=== PATIENT | male | born 1960 | race African-American/Black ===

== ENCOUNTER 2016-09-21 16:08 | Inpatient (IN) | payer OTHER ==
[~2016-09-21] VITALS: Ht 182.9 cm; Wt 213.2 kg
[~2016-09-21 16:08] MED LIST: ALBUTEROL2.5 MG/3 M INH; ASPIRIN81 MG ORAL; CRANBERRY450 M4 PO; DOCUSATE SODIU100 MG ORAL; HUMALOG100 UNIT/4 SUBQ; LACTULOSE20 GM/301 ORAL; LANTUS SOL100 UNIT/1 SUBQ; MAGNESIUM OXID400 M1 ORAL; METFORMIN HCL500 M1 ORAL; NORCO 10-325 T1 EACH ORAL; NYSTATIN15 GM TOPIC; SENNA8.6 M2 PO; SPIRONOLACTONE1 EACH ORAL; TYLENOL325 MG ORAL; ZOCOR20 MG ORAL
--- NOTE | 2016-09-21 16:13 | Emergency Room Report ---
History of Present Illness General Chief Complaint: General Complaint Source: Patient, Medical Record, EMS Present Illness HPI The patient comes in with a history of left lower lobe pneumonia. He resides in a [facility] facility. He is been coughing and wheezing. He has morbid obesity and positive peripheral edema. Denies any chest pain but has anxiety. His history of scrotal edema and as a urinary catheter in. Apparently there was difficulty inserting the catheter the last time he was here. He is on oxygen chronically at the facility and also has a nebulizer. He has been wheezing. He states he doesn't want to stay in the hospital and wants to be treated as an outpatient. Occasional headaches. No change in vision. No NVD. Appetite normal. Allergies: Coded Allergies: No Known Allergies (Unverified , 07/01/16) Patient History Past Medical History: see triage record Social History: Denies: smoking Social History Narrative SNF Reviewed Nursing Documentation: PMH: Agreed, PSxH: Agreed Nursing Documentation-PMH Past Medical History: No History, Except For Hx Hypertension: Yes - Hypercholesterolemia, Erythema Intertrigo Hx COPD: Yes Hx Diabetes: Yes - Type 2, care home use of insulin Review of Systems All Other Systems: negative except mentioned in HPI Physical Exam Vital Signs Date Time Temp Pulse Resp B/P Pulse Ox O2 Delivery O2 Flow Rate FiO2 09/21/16 16:05 98.1 84 16 137/70 97 Nasal Cannula 4.0 Sp02 EP Interpretation: reviewed, normal General Appearance: no apparent distress, GCS 15, obese - morbid Head: normocephalic, atraumatic Eyes: bilateral eye PERRL, bilateral eye normal inspection ENT: moist mucus membranes Neck: supple Respiratory: decreased breath sounds, crackles, rales, wheezing, expiration Cardiovascular #1: regular rate, rhythm, edema Cardiovascular #2: 2+ radial (R) Gastrointestinal: normal bowel sounds, non tender, non-distended, overweight - massive Genitourinary: other - edema - scrota size of basketball, unable to see penis Musculoskeletal: back normal, inflammation, swelling Neurologic: alert, oriented x3, motor strength/tone normal, sensory intact, speech normal Psychiatric: depressed affect Skin: other - min erythema LE Medical Decision Making Diagnostic Impression: Primary Impression: Pneumonia Qualified Codes: J18.9 - Pneumonia, unspecified organism Additional Impressions: Morbid obesity Qualified Codes: E66.01 - Morbid (severe) obesity due to excess calories Scrotal edema Pyuria COPD (chronic obstructive pulmonary disease) Qualified Codes: J44.0 - Chronic obstructive pulmonary disease with acute lower respiratory infection ER Course Patient presents with cough which is productive dyspnea wheezing and apparently an x-ray that reveals left-sided pneumonia. Differential includes pneumonia, exacerbation of COPD, acute myocardial infarction amongst others. The patient needs to have emergent evaluation with labs, blood cultures, chest x-ray. In addition to that the patient be treated with beta agonists. Labs remarkable for elevated WBC, pyuria. CXR with infiltrates and L effusion. The patient somewhat improved after treatment however still shows evidence of pneumonia with leukocytosis and infiltrates with effusion on the left-hand side. The patient needs IV antibiotics and further hospitalization. Initially the patient was refusing to be hospitalized but then agreed. Antibiotics started. Transiently seen by [facility] urologist as scrotal edema is massive. Discussed with Dr. Graves who accepts patient in transfer. Unable to transfer due to no bariatric transport. Admit here Dr. Reis. Laboratory Tests Test 09/21/16 17:30 09/21/16 17:58 White Blood Count 13.3 K/UL (4.8-10.8) H Red Blood Count 4.41 M/UL (4.70-6.10) L Hemoglobin 12.7 G/DL (14.2-18.0) L Hematocrit 40.8 % (42.0-52.0) L Mean Corpuscular Volume 93 FL (80-99) Mean Corpuscular Hemoglobin 28.7 PG (27.0-31.0) Mean Corpuscular Hemoglobin Concent 31.1 G/DL (32.0-36.0) L Red Cell Distribution Width 15.3 % (11.6-14.8) H Platelet Count 289 K/UL (150-450) Mean Platelet Volume 6.5 FL (6.5-10.1) Neutrophils (%) (Auto) 71.1 % (45.0-75.0) Lymphocytes (%) (Auto) 20.3 % (20.0-45.0) Monocytes (%) (Auto) 5.8 % (1.0-10.0) Eosinophils (%) (Auto) 1.7 % (0.0-3.0) Basophils (%) (Auto) 1.1 % (0.0-2.0) Prothrombin Time 10.6 SEC (9.30-11.50) Prothrombin Time INR 1.0 (0.9-1.1) PTT 29 SEC (23-33) Sodium Level 137 mEQ/L (135-145) Potassium Level 4.7 mEQ/L (3.4-4.9) Chloride Level 90 mEQ/L (98-107) L Carbon Dioxide Level 40 mEQ/L (20-30) H Anion Gap 7 (5-15) Blood Urea Nitrogen 15 mg/dL (7-23) Creatinine 0.6 mg/dL (0.7-1.2) L Estimate Glomerular Filtration Rate > 60 mL/min (>60) Glucose Level 189 mg/dL (74-106) H Lactic Acid Level 0.90 mmol/L (0.66-2.22) Calcium Level 9.2 mg/dL (8.6-10.2) Total Bilirubin 0.4 mg/dL (0.0-1.2) Aspartate Amino Transferase (AST) 12 U/L (5-40) Alanine Aminotransferase (ALT) 12 U/L (3-41) Alkaline Phosphatase 83 U/L (40-129) Total Creatine Kinase 54 U/L (38-174) Troponin I < 0.30 ng/mL (<=0.30) Pro-B-Type Natriuretic Peptide 268 pg/mL (0-125) H Total Protein 7.4 g/dL (6.6-8.7) Albumin 3.2 g/dL (3.5-5.2) L Globulin 4.2 g/dL Albumin/Globulin Ratio 0.7 (1.0-2.7) L Urine Color Pale yellow Urine Appearance Slightly cloudy Urine pH 8 (4.5-8.0) Urine Specific [place] 1.010 (1.005-1.035) Urine Protein Negative (NEGATIVE) Urine Glucose (UA) Negative (NEGATIVE) Urine Ketones Negative (NEGATIVE) Urine Occult Blood 3+ (NEGATIVE) H Urine Nitrite Positive (NEGATIVE) H Urine Bilirubin Negative (NEGATIVE) Urine Urobilinogen Normal MG/DL (0.0-1.0) Urine Leukocyte Esterase 3+ (NEGATIVE) H Urine RBC 5-10 /HPF (0 - 0) H Urine WBC 15-20 /HPF (0 - 0) H Urine Squamous Epithelial Cells None /LPF (NONE/OCC) Urine Bacteria Many /HPF (NONE) H Microbiology Date/Time Source Procedure Growth Status 09/21/16 18:28 Nasal Nares Influenza Types A,B Antigen (GAGAN) - Final Complete EKG Diagnostic Results Rate: normal Rhythm: NSR ST Segments: no acute changes Rhythm Strip Diag. Results EP Interpretation: yes Rhythm: NSR, no PVC's, no ectopy Chest X-Ray Diagnostic Results EP Interpretation: Yes Findings: no pneumothorax, other - inc cor, bilat infiltrates, possible bilat effusions Number of Views: 1 Status: improved Disposition: ADMITTED INPATIENT Condition: Serious Geraldo Cox M.D. Sep 21, 2016 16:13
[2016-09-21] MEDS ORDERED: Ipratropium 0.02% Inh Soln 2.5ml UD HHN ONE (16:15)
[2016-09-21] MEDS ORDERED: Albuterol ud Inhalation HHN ONE (16:15)
[2016-09-21 17:46] LABS: BASOPHILS % (AUTO) 1.1 % (0.0-2.0); EOSINOPHILS % (AUTO) 1.7 % (0.0-3.0); LYMPHOCYTES % (AUTO) 20.3 % (20.0-45.0); MEAN CORPUSCULAR HEMOGLOBIN 28.7 PG (27.0-31.0); MEAN CORPUSCULAR HGB CONC 31.1 G/DL (32.0-36.0); MEAN CORPUSCULAR VOLUME 93 FL (80-99); MEAN PLATELET VOLUME 6.5 FL (6.5-10.1); MONOCYTES % (AUTO) 5.8 % (1.0-10.0); NEUTROPHILS % (AUTO) 71.1 % (45.0-75.0); PLATELET COUNT 289 K/UL (150-450); RED BLOOD COUNT 4.41 M/UL (4.70-6.10); RED CELL DISTRIBUTION WIDTH 15.3 % (11.6-14.8); WHITE BLOOD COUNT 13.3 K/UL (4.8-10.8)
[2016-09-21] MEDS ORDERED: Norco 10mg/325mg tab ORAL ONE (18:00)
[2016-09-21 18:05] LABS: TROPONIN I < 0.30 ng/mL (<=0.30)
[2016-09-21 18:07] LABS: ALANINE AMINOTRANSFERASE 12 U/L (3-41); ALBUMIN/GLOBULIN RATIO 0.7 (1.0-2.7); ANION GAP 7 (5-15); ASPARTATE AMINO TRANSFERASE 12 U/L (5-40); CALCIUM 9.2 mg/dL (8.6-10.2); CARBON DIOXIDE 40 mEQ/L (20-30); CHLORIDE 90 mEQ/L (98-107); CREATININE 0.6 mg/dL (0.7-1.2); GLOMERULAR FILTRATION RATE > 60 mL/min (>60); HEMOLYSIS 3; POTASSIUM 4.7 mEQ/L (3.4-4.9); SODIUM 137 mEQ/L (135-145); TOTAL PROTEIN 7.4 g/dL (6.6-8.7)
[2016-09-21 18:07] LABS: APPEARANCE,URINE SLIGHTLY CLOUDY; KETONES,URINE NEGATIVE (NEGATIVE); LEUKOCYTE ESTERASE ,URINE 3+ (NEGATIVE); NITRITE,URINE POSITIVE (NEGATIVE); PH,URINE 8 (4.5-8.0); PROTEIN,URINE NEGATIVE (NEGATIVE); UROBILINOGEN,URINE NORMAL MG/DL (0.0-1.0)
[2016-09-21 18:19] LABS: PROTHROMBIN TIME 10.6 SEC (9.30-11.50)
[2016-09-21 18:33] LABS: BACTERIA,URINE MANY /HPF; WBC,URINE 15-20 /HPF (0 - 0)
[2016-09-21] MEDS ORDERED: cefTRIAXone 1 GM in NS 55 ML IVPB ONE (18:45)
[2016-09-21] MEDS ORDERED: Azithromycin 500 MG in D5W 275 ML IVPB ONE (19:15)
[2016-09-21] MEDS ORDERED: Vancomycin 1.5gm/D5W 300ml 325 ML IVPB ONE (19:15)
[2016-09-21 19:23] VITALS: BP 127/57
[2016-09-21] MEDS ORDERED: Azithromycin Inj IV ONE (19:48)
[2016-09-21] MEDS ORDERED: LORazepam Inj 2mg/ml 1ml IV PRN (22:45)
[2016-09-21] MEDS ORDERED: Nitroglycerin Subl 0.4mg tab (Bottle Of 25) SL PRN (22:45)
[2016-09-21] MEDS ORDERED: Promethazine/Codeine 5ml UD ORAL PRN (22:45)
[2016-09-21] MEDS ORDERED: DuoNeb 0.5-3(2.5)mg/3ml neb HHN PRN (22:45)
[2016-09-21 22:57] VITALS: BP 110/56
[2016-09-22] VITALS: BP 140/61
[2016-09-22] MEDS ORDERED: Zosyn 4.5gm inj ONE (00:54)
[2016-09-22] MEDS: Zosyn 4.5gm q8h **Extended infusion IVPB SCH ×4 (01:22→11:08)
[2016-09-22] MEDS: Morphine Sulfate 2mg/ml Inj IVP PRN ×3 (01:22→11:03)
[2016-09-22 04:00] VITALS: BP 124/59
[2016-09-22] MEDS: NovoLOG Insulin Flexpen SUBQ SCH ×2 (05:51→12:18)
[2016-09-22] MEDS ORDERED: Piperacillin/Tazobactam 2.25 GM in D5W 55 ML IV SCH (06:00)
[2016-09-22 09:00] VITALS: BP 124/59
[2016-09-22] MEDS ORDERED: Theophylline ER 100mg ORAL SCH (09:00)
[2016-09-22] MEDS ORDERED: Heparin 5000 units/ml inj SUBQ SCH (09:00)
--- NOTE | 2016-09-22 11:59 | Diagnostic Imaging Report ---
Indication: Cough Comparison: None A single view chest radiograph was obtained. Findings: Exam limited by body habitus. Prominent pulmonary vascularity demonstrated. The heart is enlarged. The lung bases are excluded from the [id number] and not imaged. Impression: Technically suboptimal examination. Suspected CHF
[2016-09-22 12:37] VITALS: BP 124/81
--- NOTE | 2016-09-22 13:57 | History & Physical ---
History and Physical History & Physicial patietn is seen and examined. Dict completed. ID# [id number] Mame Reis MD Sep 22, 2016 13:57
--- NOTE | 2016-09-22 14:02 | General Progress Note ---
Assessment/Plan Status: stable Assessment/Plan 1- Sepsis 2- HCA-PNA 3- hcA- UTI 4- Morbid obesity 5- HTN 6- DM Plan: discussed the transfer of care to [facility]. Today , patient is medicably stable for transfer Pulmonary, ID and Urology services are notified an consulted Subjective ROS Limited/Unobtainable: No Respiratory: Reports: cough, shortness of breath Allergies: Coded Allergies: No Known Allergies (Unverified , 07/01/16) Objective Last 24 Hour Vital Signs Date Time Temp Pulse Resp B/P Pulse Ox O2 Delivery O2 Flow Rate FiO2 09/22/16 12:20 98.7 09/22/16 09:00 97.2 94 19 124/59 94 Nasal Cannula 4.0 09/22/16 07:51 96 Nasal Cannula 4.0 36 09/22/16 07:51 Nasal Cannula 4.0 36 09/22/16 07:51 85 18 Nasal Cannula 4.0 36 09/22/16 04:00 96.8 88 18 124/59 96 Nasal Cannula 4.0 09/22/16 01:00 Nasal Cannula 4.0 36 09/22/16 01:00 88 16 Nasal Cannula 4.0 36 09/22/16 01:00 95 Nasal Cannula 4.0 36 09/22/16 00:00 97.7 87 18 140/61 95 Nasal Cannula 4.0 09/21/16 23:33 98.1 85 20 110/56 96 Nasal Cannula 5.0 40 09/21/16 22:57 98.1 85 20 110/56 96 Nasal Cannula 5.0 40 09/21/16 19:31 98.1 09/21/16 19:23 85 21 127/57 95 Nasal Cannula 5.0 09/21/16 17:07 81 21 Nasal Cannula 5.0 09/21/16 17:07 40 09/21/16 17:07 81 21 95 Nasal Cannula 5.0 09/21/16 17:07 94 21 97 Nasal Cannula 5.0 09/21/16 16:05 98.1 84 16 137/70 97 Nasal Cannula 4.0 Intake and Output 09/21/16 09/22/16 19:00 07:00 Intake Total 405.0 ml Output Total 1950 ml Balance -1545.0 ml Intake Oral 240 ml IV Total 165.0 ml Output Urine Total 1950 ml Laboratory Tests 09/21/16 17:30: White Blood Count 13.3H, Red Blood Count 4.41L, Hemoglobin 12.7L, Hematocrit 40.8L, Mean Corpuscular Volume 93, Mean Corpuscular Hemoglobin 28.7, Mean Corpuscular Hemoglobin Concent 31.1L, Red Cell Distribution Width 15.3H, Platelet Count 289, Mean Platelet Volume 6.5, Neutrophils (%) (Auto) 71.1, Lymphocytes (%) (Auto) 20.3, Monocytes (%) (Auto) 5.8, Eosinophils (%) (Auto) 1.7, Basophils (%) (Auto) 1.1, Prothrombin Time 10.6, Prothromb Time International Ratio 1.0, Activated Partial Thromboplast Time 29, Sodium Level 137, Potassium Level 4.7, Chloride Level 90L, Carbon Dioxide Level 40H, Anion Gap 7, Blood Urea Nitrogen 15, Creatinine 0.6L, Estimat Glomerular Filtration Rate > 60, Glucose Level 189H, Lactic Acid Level 0.90, Calcium Level 9.2, Total Bilirubin 0.4, Aspartate Amino Transf (AST/SGOT) 12, Alanine Aminotransferase ( ALT/SGPT) 12, Alkaline Phosphatase 83, Total Creatine Kinase 54, Troponin I < 0.30, Pro-B-Type Natriuretic Peptide 268H, Total Protein 7.4, Albumin 3.2L, Globulin 4.2, Albumin/Globulin Ratio 0.7L 09/21/16 17:58: Urine Color Pale yellow, Urine Appearance Slightly cloudy, Urine pH 8, Urine Specific [place] 1.010, Urine Protein Negative, Urine Glucose (UA) Negative, Urine Ketones Negative, Urine Occult Blood 3+H, Urine Nitrite PositiveH, Urine Bilirubin Negative, Urine Urobilinogen Normal, Urine Leukocyte Esterase 3+H, Urine RBC 5-10H, Urine WBC 15-20H, Urine Squamous Epithelial Cells None, Urine Bacteria ManyH Height (Feet): 6 Height (Inches): 0.00 Weight (Pounds): 470 General Appearance: WD/WN EENT: PERRL/EOMI Neck: normal inspection Cardiovascular: normal rate Respiratory/Chest: rhonchi - bilaterally, other - limited eval Abdomen: other - morbidly obese Genitourinary/Rectal: other - Dowell in place Extremities: other - morbidly obese. limietd eval Neurologic: oriented x 3 Mame Reis MD Sep 22, 2016 14:02
[2016-09-22 16:00] VITALS: BP 147/71
[2016-09-22] MEDS ORDERED: HEPARIN SO5000 UNIT2 SUBQ (17:15)
[2016-09-22] MEDS ORDERED: NOVOLOG100 UNITS1 (17:15)
[2016-09-22] MEDS ORDERED: DUONEB 0.5-3(2.53 ML HHN (17:16)
[2016-09-22] MEDS ORDERED: LORAZEPAM2 MG/1 M1 IV (17:17)
[2016-09-22] MEDS ORDERED: MORPHINE 00.5 MG/11 IJ (17:18)
[2016-09-22] MEDS ORDERED: NITROGLYCERIN0.4 MG SL (17:19)
[2016-09-22] MEDS ORDERED: ONDANSETRON4 MG/2 M2 IVP (17:20)
[2016-09-22] MEDS ORDERED: ZOSYN 3.373.375 GM/1 IVPB (17:29)
[2016-09-22] MEDS ORDERED: PROMETHAZINE-C118 M1 ORAL (17:30)
[2016-09-22] MEDS ORDERED: TEMAZEPAM15 MG ORAL (17:32)
[2016-09-22] MEDS ORDERED: THEOPHYLLINE A100 MG ORAL (17:32)
[2016-09-22] MEDS ORDERED: NS 275ml ONE (17:44)
[2016-09-22] MEDS ORDERED: Tubing IV Secondary IV ONE (17:44)
--- NOTE | 2016-09-22 18:05 | Consultation ---
History of Present Illness General Date patient seen: Sep 22, 2016 Chief Complaint: General Complaint Reason for Consultation: dyspnea Present Illness HPI 56 year old male with morbid obeisty, CHF, [facility] resident brought in by paramedics with chief complains of coughing and wheezing. He has morbid obesity and positive peripheral edema. His history of scrotal edema and as a urinary catheter in. He is on oxygen chronically at the facility and also has a nebulizer. Allergies: Coded Allergies: No Known Allergies (Unverified , 07/01/16) Medication History Scheduled Aspirin* (Aspirin*), 81 MG ORAL DAILY, (Reported) Cranberry Fruit Concentrate (Cranberry), 450 MG PO DAILY, (Reported) Docusate Sodium* (Docusate Sodium*), 100 MG ORAL TWICE A DAY, (Reported) Heparin Sod (Porcine) (Heparin Sodium*), 5,000 UNITS SUBQ EVERY 12 HOURS, ( Reported) Insulin Glargine (Lantus), 50 SUBQ BEDTIME, (Reported) Insulin Lispro (Humalog), 5 SUBQ THREE TIMES A DAY, (Reported) Magnesium Oxide (Magnesium Oxide), 400 MG ORAL DAILY, (Reported) Metformin Hcl* (Metformin Hcl*), 500 MG ORAL DAILY, (Reported) Nystatin* (Nystatin*), 1 APPLIC TOPIC THREE TIMES A DAY Fircwnwhkvec-Akfn-Znijltbj,Iso (Zosyn 3.375 Gm Pre Mix-Bag), 4.5 GM IVPB EVERY 8 HOURS, (Reported) Sennosides (Senna), 8.6 MG PO BEDTIME, (Reported) Simvastatin (Zocor), 20 MG ORAL BEDTIME, (Reported) Spironolact/Hydrochlorothiazid (Spironolactone-Hctz 25-25 Tab), 1 TAB ORAL DAILY , (Reported) Theophylline (Theodur*), 100 MG ORAL TWICE A DAY, (Reported) Scheduled PRN Acetaminophen (Tylenol), 650 MG ORAL Q4HR PRN for Prn Pain/Headache/Temp > 101, (Reported) Albuterol Sulfate* (Albuterol Sulfate Hhn*), 3 ML INH FIVE TIMES A DAY PRN for Shortness of Breath, (Reported) Codeine/Promethazine Hcl* (Promethazine-Codeine Syrup*), 5 ML ORAL Q6H PRN for For Cough, (Reported) Hydrocodone Bit/Acetaminophen 10-325* ([place] 10-325*), 1 TAB ORAL EVERY 8 HOURS PRN for For Pain, (Reported) Ipratropium/Albuterol Sulfate (DuoNeb 0.5-3(2.5)mg/3ml), 3 ML HHN EVERY 4 HOURS PRN for Shortness of Breath, (Reported) Lorazepam* (Lorazepam*), 0.5 MG IV Q4H PRN for Agitation, (Reported) Morphine Sulfate/Pf (Morphine 0.5 Mg/Ml Vial), 2 MG IJ EVERY 4 HOURS PRN for Severe Pain (Pain Scale 7-10), (Reported) Ondansetron* (Zofran 4 Mg/2 Ml Vial*), 4 MG IVP Q6H PRN for Nausea & Vomiting, ( Reported) Temazepam (Temazepam*), 15 MG ORAL BEDTIME PRN for Insomnia, (Reported) Miscellaneous Medications Insulin Aspart (Novolog Flexpen), (Reported) Lactulose (Lactulose*), 30 ML ORAL, (Reported) Nitroglycerin (Nitroglycerin), 0.4 MG SL, (Reported) Patient History Healthcare decision maker Resuscitation status Advanced Directive on File Past Medical/Surgical History Past Medical/Surgical History: (1) Pneumonia (2) Scrotal edema (3) COPD (chronic obstructive pulmonary disease) (4) Morbid obesity Review of Systems All Other Systems: negative except mentioned in HPI Physical Exam General Appearance: mild distress Lines, tubes and drains: central line HEENT: normocephalic, atraumatic Neck: normal alignment Respiratory/Chest: chest wall non-tender, rhonchi - left, rhonchi - right Cardiovascular/Chest: normal peripheral pulses, normal rate Abdomen: normal bowel sounds, non tender Genitourinary/Rectal: normal rectal exam Last 24 Hour Vital Signs Date Time Temp Pulse Resp B/P Pulse Ox O2 Delivery O2 Flow Rate FiO2 09/22/16 12:37 97.5 93 20 124/81 93 Nasal Cannula 4.0 09/22/16 12:20 98.7 09/22/16 09:00 97.2 94 19 124/59 94 Nasal Cannula 4.0 09/22/16 07:51 96 Nasal Cannula 4.0 36 09/22/16 07:51 Nasal Cannula 4.0 36 09/22/16 07:51 85 18 Nasal Cannula 4.0 36 09/22/16 04:00 96.8 88 18 124/59 96 Nasal Cannula 4.0 09/22/16 01:00 Nasal Cannula 4.0 36 09/22/16 01:00 88 16 Nasal Cannula 4.0 36 09/22/16 01:00 95 Nasal Cannula 4.0 36 09/22/16 00:00 97.7 87 18 140/61 95 Nasal Cannula 4.0 09/21/16 23:33 98.1 85 20 110/56 96 Nasal Cannula 5.0 40 09/21/16 22:57 98.1 85 20 110/56 96 Nasal Cannula 5.0 40 09/21/16 19:31 98.1 09/21/16 19:23 85 21 127/57 95 Nasal Cannula 5.0 Intake and Output 09/21/16 09/22/16 19:00 07:00 Intake Total 405.0 ml Output Total 1950 ml Balance -1545.0 ml Intake Oral 240 ml IV Total 165.0 ml Output Urine Total 1950 ml Microbiology Date/Time Source Procedure Growth Status 09/22/16 04:30 Sputum Expectorated Gram Stain - Final Resulted 09/22/16 04:30 Sputum Expectorated Sputum Culture Pending Resulted 09/21/16 18:28 Nasal Nares Influenza Types A,B Antigen (GAGAN) - Final Complete Height (Feet): 6 Height (Inches): 0.00 Weight (Pounds): 470 Medications Current Medications Medications (Trade) Dose Ordered Sig/[place] Route PRN Reason Start Time Stop Time Status Last Admin Dose Admin Albuterol/ Ipratropium (DuoNeb 0.5-3(2.5)mg/3ml) 3 ml Q4H PRN HHN dyspnea 09/21/16 22:45 09/26/16 22:44 Dextrose STAT PRN IV Hypoglycemia 09/21/16 22:45 10/21/16 22:44 Heparin Sodium (Porcine) (Heparin 5000 units/ml) 5,000 units EVERY 12 HOURS SUBQ 09/22/16 09:00 10/22/16 08:59 09/22/16 08:31 Insulin Aspart (NovoLOG) BEFORE MEALS AND HS SUBQ 09/22/16 06:30 10/22/16 06:29 09/22/16 12:18 Lorazepam (Ativan 2mg/ml 1ml) 0.5 mg Q4H PRN IV For Anxiety 09/21/16 22:45 09/28/16 22:44 Morphine Sulfate (Morphine Sulfate) 2 mg Q4H PRN IVP severe pain 7-10 09/21/16 22:45 09/28/16 22:44 09/22/16 11:03 Nitroglycerin (Ntg) 0.4 mg Q5M X 3 DOSES PRN SL Prn Chest Pain 09/21/16 22:45 10/21/16 22:44 Ondansetron HCl (Zofran) 4 mg Q6H PRN IVP Nausea & Vomiting 09/21/16 22:45 10/21/16 22:44 Piperacillin Sod/ Tazobactam Sod/ Dextrose (Zosyn/D5W) 110 ml @ 27.5 mls/hr Q8HR IVPB 09/22/16 22:00 09/29/16 21:59 Promethazine HCl/ Codeine (Phenergan with Codeine) 5 ml Q6H PRN ORAL cough 09/21/16 22:45 10/21/16 22:44 Temazepam (Restoril) 15 mg HSPRN PRN ORAL Insomnia 09/21/16 22:45 09/28/16 22:44 Theophylline (Omega-Dur) 100 mg EVERY 12 HOURS ORAL 09/22/16 09:00 10/22/16 08:59 09/22/16 08:27 Assessment/Plan Problem List: (1) Pneumonia ICD Codes: J18.9 - Pneumonia, unspecified organism SNOMED: 188085535 (2) COPD (chronic obstructive pulmonary disease) ICD Codes: J44.9 - Chronic obstructive pulmonary disease, unspecified SNOMED: 75791017 (3) Scrotal edema ICD Codes: N50.89 - Other specified disorders of the male genital organs SNOMED: 18944465, 45842725033810, 435442081 (4) Morbid obesity ICD Codes: E66.01 - Morbid (severe) obesity due to excess calories SNOMED: 090488434, 05465145141051, 545875069 Assessment/Plan respiratory treatment Iv antibiotics chest pt steoids titrate fio2 to sat of 92% DARYN FRANCO Sep 22, 2016 18:05
--- NOTE | 2016-09-22 21:28 | History and Physical Report ---
DATE OF ADMISSION: 09/21/2016 SOURCE OF INFORMATION: Patient and EMR. HISTORY OF PRESENT ILLNESS: The patient is a pleasant 56-year-old white male. He is suffering from multiple medical problems including morbid obesity and hydrocele. Currently, a resident of a [facility]. He was notified about the increasing shortness of breath and productive cough. The patient was transferred to the emergency room for additional evaluation for which, he was found to have infiltration in the lung, who was admitted for additional evaluation. 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 PAST SURGICAL HISTORY: Multiple genitoureter surgeries. MEDICATIONS: Facility medications including but not limited to the following: Tylenol p.r.n., aspirin, ProAir, hydrochlorothiazide, spironolactone, sliding scale insulin, lactulose, metformin, and simvastatin. ALLERGIES: NKDA. SOCIAL HISTORY: No documented history of illicit drug abuse. The patient is currently a resident of the [facility]. FAMILY HISTORY: Reviewed. Noncontributory. REVIEW OF SYSTEMS: Positive for shortness of breath. Negative for chest pain. Negative for abnormal bleeding. Negative for severe pain in the extremities. Positive for the Dowell catheter in place at baseline. PHYSICAL EXAMINATION: VITAL SIGNS: Blood pressure 130/70, temperature 98.1 degrees, pulse oximetry 95% on 4 liters of nasal cannula, and respiratory rate 18. HEAD AND NECK: Atraumatic and normocephalic. CHEST: Positive for bronchial breathing sounds and decreased breathing sounds in the basilar regions. ABDOMEN: Morbidly obese. Limited evaluation. MUSCULOSKELETAL: Morbidly obese. Limited evaluation. However, there is no abnormal asymmetric focal motor deficit. NEUROLOGY: The patient is awake, alert, and oriented x3. IMAGING: Chest x-ray, limited evaluation, however, suggestive of some fluid accumulation in the lung. LABORATORY DATA: Lab results dated 09/21/2016 shows WBC of 13.3, hemoglobin 12.7, and platelets 287,000. Sodium 137, potassium 4.7, BUN 15, and creatinine 0.6. Urine analysis positive for 3+ blood, 15 to 20 WBC, 3+ leukocytosis, and urine bacteria many. ASSESSMENT: 1. Sepsis. 2. Healthcare-associated pneumonia. 3. Healthcare-associated urinary tract infection. 4. Morbid obesity. 5. Hyperlipidemia. 6. Diabetes type 2. 7. Gastrointestinal and deep vein thrombosis prophylaxis. PLAN OF CARE: We will resume the antibiotic management including the vancomycin and Zosyn, pending the blood cultures. Urology, Dr. Hutchins, has been notified and consulted. Pulmonary, Dr. Pereyra, has already been notified and consulted. Mame Reis M.D. DR: MERLENE JOB#: [id number] CC:
[2016-09-22] MEDS ORDERED: Zosyn 4.5gm q8h **Extended infusion IVPB SCH ×2 (22:00)
--- NOTE | 2016-09-22 23:47 | Consultation ---
DATE OF CONSULTATION: 09/22/2016 CONSULTING PHYSICIAN: Jerzy Hutchins M.D. REFERRING PHYSICIAN: Mame Reis M.D. REASON FOR EVALUATION: Evaluation of Dowell. HISTORY OF PRESENT ILLNESS: This is a 56-year-old male who was admitted to the hospital because of pneumonia and has chronic Dowell and history of difficult catheterization. PAST MEDICAL HISTORY: Reviewed. He has psychiatric disorder, COPD and diabetes. MEDICATIONS: List was reviewed. PHYSICAL EXAMINATION: GENERAL: The patient is morbidly obese. VITAL SIGNS: Stable. GENITOURINARY: Dowell is in place. Urine is clear. He has significant edema of the genitalia with some erythema. LABORATORY AND DIAGNOSTIC DATA: His laboratory data was reviewed. His creatinine 0.6. Urinalysis is positive for red cells and white cells and bacteria. IMPRESSION: 1. Urinary retention with chronic Dowell. 2. Genital edema. 3. Hematuria and pyuria secondary to Dowell. DISCUSSION: The patient has a long-standing Dowell, he has a history of difficult catheterizations. He states that he usually goes to [facility] for the catheter to be changed and at this time the Dowell is indwelling, and I would recommend that he follow up as an outpatient at [facility] for management of his Dowell. His urine is probably colonized and again I do not recommend any acute intervention here and to follow up as an outpatient at [facility]. Jerzy Hutchins M.D. DR: ALEKSANDR JOB#: [id number] CC:
--- NOTE | 2016-09-23 11:04 | Discharge Summary ---
Discharge Summary Hospital Course Date of Admission Sep 21, 2016 at 22:11 Date of Discharge Sep 22, 2016 at 17:45 Admitting Diagnosis Pneumonia, UTI HPI Jose Bae is a 56 year old male who was admitted on Sep 21, 2016 at 22:11 for Pneumonia,Urinary Tract Infection Hospital Course [id number] Discharge Discharge Disposition Patient was discharged to [facility]. Discharge Diagnoses: Jessica Nava NP Sep 23, 2016 11:04
--- NOTE | 2016-09-24 03:17 | Discharge Summary 2 SIG ---
DATE OF ADMISSION: 09/21/2016 DATE OF DISCHARGE: 09/22/2016 CONSULTANTS: 1. Maryse Pereyra M.D. 2. Jerzy Hutchins M.D. BRIEF HOSPITAL COURSE: The patient is a 56-year-old white male who has been suffering from multiple medical problems including morbid obesity and hydrocele. He is a resident of [facility] and was brought in for increasing shortness of breath and productive cough. He was transferred to the emergency room for additional evaluation where he was found to have infiltrates in the lung and was admitted for evaluation. Chest x-ray showed limited evaluation, however, suggestive of some fluid accumulation in the lung. Labs showed leukocytosis. Urinalysis positive for 3+ blood, 15 to 20 WBC and 3+ leukocytes with many bacteria. He was given antibiotic management including vancomycin and Zosyn. Dr. Pereyra was consulted and he was given respiratory treatments, and chest physiotherapy. He had a significant edema on the genitalia with some erythema. Dr. Hutchins was also consulted for evaluation of Dowell. The patient has a longstanding Dowell and has history of difficult catheterization and goes outpatient to [facility] to have the Dowell changed. No acute intervention was needed and recommend to follow up as outpatient at [facility]. The patient was eventually discharged to contracted facility, [facility]. FINAL DIAGNOSES: 1. Sepsis. 2. HCAP pneumonia. 3. Catheter-associated urinary tract infection. 4. Morbid obesity. 5. Hypertension. 6. Diabetes mellitus. 7. Urinary retention with chronic indwelling Dowell catheter. 8. Hydrocele. 9. Hematuria and pyuria secondary to Dowell. 10. Genital edema. 11. Chronic obstructive pulmonary disease. Mame Reis M.D. I have been assigned to dictate discharge summary on this account and I was not involved in the patient's management. Jessica Nava N.P. DR: MAIN JOB#: [id number] CC: PRANAV
--- NOTE | 2016-11-02 23:53 | Cardiology Report ---
APPROVED REPORT EKG Measurement Heart [id number] Normal sinus rhythm Possible Left atrial enlargement Borderline ECG
== END 2016-09-22 17:45 | disposition short-term general hospital (02) | DRG 720 ==
LOC: EDBD 16:08 → EMR 18:21 → 4W 22:11 → EDBEDREQ 22:40 → 4W 23:58
DX: A41.9 Sepsis, unspecified organism (principal); J18.9 Pneumonia, unspecified organism; I50.9 Heart failure, unspecified; T83.511A Infection and inflammatory reaction due to indwelling urethral catheter, initial encounter; Z99.81 Dependence on supplemental oxygen; Y84.6 Urinary catheterization as the cause of abnormal reaction of the patient, or of later complication, without mention of misadventure at the time of the procedure; E66.01 Morbid (severe) obesity due to excess calories; E11.9 Type 2 diabetes mellitus without complications; E78.5 Hyperlipidemia, unspecified; R33.9 Retention of urine, unspecified; N43.3 Hydrocele, unspecified; J44.9 Chronic obstructive pulmonary disease, unspecified; Z79.4 Long term (current) use of insulin; N50.89 Other specified disorders of the male genital organs; Y95 Nosocomial condition; Z68.44 Body mass index [BMI] 60.0-69.9, adult
CPT/HCPCS: 36415; 71010; 80053; 81003; 82550; 82962; 83605; 83880; 84484; 85025; 85610; 85730; 86710; 87040; 87070; 87081; 87086; 87181; 87205; 93005; 94640; 94664; 94760; J1815